=== PATIENT | female | born 1970 | race Caucasian/White ===

== ENCOUNTER 2024-07-28 13:57 | Emergency (ER) | payer OTHER, SELFPAY ==
[2024-07-28 14:02] VITALS: BP 124/84
--- NOTE | 2024-07-28 14:06 | ED.GENMED ---
ED Provider Triage
<Naren Jain PA-C - Last Filed: 07/28/24 14:10>
-
Patient seen by provider in Triage?: Seen in Triage
Attestation: A medical screening examination has been initiated by a qualified medical provider. Based on the assessment performed at this time, it has been determined that an emergent medical condition may exist and the patient has been informed
that further medical evaluation and possible additional diagnostic testing may be needed.
HPI: 54 yo female presents after a fall, struck her L post auricular scalp on her truck. No LOC. Feels dizzy and woozy. No thinners. No neck pain or chest pain
GENERAL: Alert , in no apparent distress
EYE: No visual abnormalities.
NECK: Trachea midline
ENT: No visible abnormalities.
LUNGS: No acute respiratory distress
NEUROLOGICAL: Alert and oriented
SKIN: Skin intact. No visible changes.
MUSCULOSKELETAL: Moving extremities normally
PSYCH: Normal and appropriate interaction.
This is a medical evaluation conducted in person to initiate diagnostic evaluation and provide initial therapeutics. Please see further documentation by the treating clinician.
History of Present Illness
<Naren Jain PA-C - Last Filed: 07/28/24 14:10>
General
Chief Complaint: Head Injury
Time Seen by Provider: 07/28/24 14:32
<Codie Glez PA-C - Last Filed: 07/28/24 23:22>
General
Source: patient
Exam Limitations: none
History of Present Illness
History of Present Illness:
54yoF with no significant past medical history presenting for evaluation after a head injury about 2.5 hours ago. Patient was walking up the steps into her horse trailer when she lost her footing. She fell backwards and struck the back of her head
against the door. No LOC. Patient reports pain in the left postauricular area. She denies any vomiting or neck pain. She does not take any blood thinners.
Past History
<Naren Jain PA-C - Last Filed: 07/28/24 14:10>
Past History
ED Past Medical History: GERD
ED Past Surgical History: None
Social History
Tobacco: Non-smoker
Alcohol: None
Drug: None
Personal:
Living: with family
Employment: Employed
Phy Exam
<Codie Glez PA-C - Last Filed: 07/28/24 23:22>
General Physical Exam
General Presentation: well appearing and no apparent distress
General age: appears stated age
General Skin: warm and dry
General Habitus: normal
General Mental: alert
ENT Exam
ENT Exam: normocephalic and other (No external signs of head trauma. +Tenderness to L postauricular area. No ecchymosis or crepitus noted. No hemotympanum. )
Additional ENT: No cervical spine tenderness with full ROM.
Eye Exam
Eye Exam: PERRL
Pulmonary Exam
Pulmonary Exam: no respiratory distress
Neurological Exam
Neurological Exam: alert
Elbert Coma Scale
Eye Opening: Spontaneous
Verbal Response: Oriented
Motor Response: Obeys Commands
GCS Total Score: 15
Skin Exam
Skin Exam: normal color and warm/dry
Psychiatric Exam
Psychiatric Exam: normal mood/affect
Course
<Naren Jain PA-C - Last Filed: 07/28/24 14:10>
Orders/Labs/Results
Orders:
Orders
07/28/24 14:06
CT Head W/o Iv Contrast Urgent
Comment:
Reason For Exam: head injury
Vital Signs
Initial and Last Documented VS:
Initial Vital Signs
Temp Pulse Resp BP Pulse Ox
98 F 71 18 124/84 98
07/28/24 14:02 07/28/24 14:02 07/28/24 14:02 07/28/24 14:02 07/28/24 14:02
Last Documented Vital Signs
Temp Pulse Resp BP Pulse Ox
98 F 71 18 124/84 98
07/28/24 14:02 07/28/24 14:02 07/28/24 14:02 07/28/24 14:02 07/28/24 14:02
<Codie Glez PA-C - Last Filed: 07/28/24 23:22>
Orders/Labs/Results
Orders:
Orders
07/28/24 14:06
CT Head W/o Iv Contrast Urgent
Comment:
Reason For Exam: head injury
Vital Signs
Initial and Last Documented VS:
Initial Vital Signs
Temp Pulse Resp BP Pulse Ox
98 F 71 18 124/84 98
07/28/24 14:02 07/28/24 14:02 07/28/24 14:02 07/28/24 14:02 07/28/24 14:02
Last Documented Vital Signs
Temp Pulse Resp BP Pulse Ox
98 F 71 18 124/84 98
07/28/24 14:02 07/28/24 14:02 07/28/24 14:02 07/28/24 14:02 07/28/24 14:02
<Codie Glez PA-C - Last Filed: 07/28/24 23:22>
MDM/Problems Addressed
Differential Diagnosis Includes:
54yoF here after a head injury a few hours ago. Hit the back of her had against a trailer. No LOC. C/o headache. No vomiting. VSS. She is awake, alert, with a GCS of 15. There is tenderness to the L postauricular area without visible signs of
trauma. No hemotympanum or ecchymosis. Cervical spine cleared via NEXUS criteria. Differential diagnosis includes closed head injury, concussion, skull fracture, intracranial hemorrhage
CT head obtained in triage which is negative for acute findings. Patient stable for discharge. Supportive care discussed including ice, Tylenol, and rest. Advised f/u with PCP and ED return precautions discussed. Patient discharged in stable
condition.
<Codie Glez PA-C - Last Filed: 07/28/24 23:22>
*Critical Care Note
Total Time (30-74mins, 75-104mins- exclusive of procedures): Not Applicable
ED Attending Note
<Naren Jain PA-C - Last Filed: 07/28/24 14:10>
-
Portions of this chart may have been created with voice recognition software.� Occasional wrong word or��sound alike� substitutions may have occurred due to the inherent limitations of voice recognition software.
Discharge Plan
Departure
Patient Disposition: Home (Routine Discharge)
Date of Disposition: 07/28/24
Time of Disposition: 16:03
Patient with high blood pressure during this ER visit?: No
Discharge Problem:
Closed head injury
Instructions: Head Injury in Adults (DC)
Prescriptions:
No Action
epinephrine [EpiPen] 0.3 MG/0.3/SYRINGE auto-injector
0.3 mg IM ONCE Qty: 0 2RF
Control
valacyclovir [Valtrex] 1,000 MG tablet
1,000 mg PO TID Qty: 21 0RF
Referrals:
Evelyn Downing PA [Family Provider] -
Activity Restrictions/Additional Instructions:
Apply ice to affected area. Take Tylenol as needed for pain. Rest and avoid screen time for the next 2-3 days.
Please follow-up with your family doctor next week. Return to the ER with any new or worsening symptoms.
Interventions
Interventions:
*Risk Screen - Suicide Last Done: 07/28/24 14:04
*General Assessment Last Done: 07/28/24 14:04
*Neglect/Abuse Screening Last Done: 07/28/24 14:04
*Nursing Disposition Last Done: 07/28/24 16:37
ED- Neurological Assessment Last Done: 07/28/24 14:28
ED-Skin Assessment Last Done: 07/28/24 14:28
Discharge Date and Time
Discharge Date/Time: 07/28/24 16:37
Print Language: SERBIAN
== END 2024-07-28 16:37 | disposition home or self-care (01) ==
LOC: EMR 13:57
PROVIDERS: EMERGENCY PHYSICIAN Emergency Medicine; FAMILY PHYSICIAN Physician Assistant
DX: S09.90XA Unspecified injury of head, initial encounter (principal); W19.XXXA Unspecified fall, initial encounter
CPT/HCPCS: 99284; 70450

== ENCOUNTER → 2025-02-28 06:58 | Outpatient (REF) | payer OTHER, SELFPAY | LOC: HWRAD 06:58 | PROVIDERS: ATTENDING PHYSICIAN Physician Assistant Medical | DX: E04.1 Nontoxic single thyroid nodule (principal) | CPT/HCPCS: 76536 ==